=== PATIENT | female | born 1985 | race Caucasian/White ===

== ENCOUNTER 2016-10-28 16:58 | Emergency (ER) | payer OTHER ==
[2016-10-28 17:14] VITALS: BP 122/74; PULSE 98; TEMP 98.1; BMI 28.8
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
[2016-10-28] MEDS ORDERED: ACETAMINOPHEN 500 MG TABLET (FP) PO ONE (18:53)
[2016-10-28] MEDS ORDERED: ACETAMINOPHEN 500 MG TABLET (FP) ONE (18:55)
== END 2016-10-28 20:40 | disposition home or self-care (01) ==
LOC: JERFT 16:58
DX: F07.81 Postconcussional syndrome (principal); G44.319 Acute post-traumatic headache, not intractable; S00.33XA Contusion of nose, initial encounter; S00.83XA Contusion of other part of head, initial encounter; Y04.2XXA Assault by strike against or bumped into by another person, initial encounter; Y93.89 Activity, other specified; Y92.480 Sidewalk as the place of occurrence of the external cause; Y07.50 Unspecified non-family member, perpetrator of maltreatment and neglect
CPT/HCPCS: 70450-TC; 70486-TC; 73030-TC-LT; 84703; 99281-25